=== PATIENT | male | born 1960 | race African-American/Black ===

== ENCOUNTER 2020-08-15 14:23 | Emergency (ER) | payer MEDICAID ==
[~2020-08-15] VITALS: Ht 182.9 cm; Wt 90.9 kg
[2020-08-15 15:27] LABS: BASOPHILS % 1.2 % (0.0-2.0); EOSINOPHILS % 2.5 % (0.0-5.0); HEMATOCRIT. 42.5 % (42.0-52.0); LYMPHOCYTES % 23.7 % (20.0-50.0); MEAN CORPUSCULAR HEMOGLOBIN 28.9 pg (28.0-32.0); MEAN CORPUSCULAR VOLUME 87.7 fL (80.0-94.0); MEAN PLATELET VOLUME 8.7 fl (7.4-10.4); MONOCYTES % 7.9 % (2.0-8.0); NEUTROPHILS % 64.7 % (40.0-76.0); PLATELET 252 x1000/uL (130-400); RED BLOOD CELL COUNT 4.84 mill/uL (4.7-6.1)
[2020-08-15 15:31] LABS: CHLORIDE 107 mEq/L (98-107)
[2020-08-15 15:35] LABS: ETHANOL BLOOD 92 mg/dL
[2020-08-15 19:40] VITALS: BP 155/95
== END 2020-08-15 20:09 | disposition left against medical advice (07) ==
LOC: ER 14:23 → EDBD 14:23 → ER 20:09
DX: R07.89 Other chest pain (principal)
CPT/HCPCS: 36415; 71045; 80053; 80320; 84484; 85025; 99285; G0480